=== PATIENT | male | born 1945 | race Two or more races ===

== ENCOUNTER 2019-09-13 08:11 | Outpatient (CLI) | payer OTHER | END 2019-09-13 09:20 | disposition home or self-care (01) | LOC: RAD 08:11 → RX STUDY 09:15 → RAD 09:20 | PROVIDERS: ATTEND Surgery | DX: K21.9 Gastro-esophageal reflux disease without esophagitis (principal); E04.8 Other specified nontoxic goiter; R22.1 Localized swelling, mass and lump, neck ==